=== PATIENT | female | born 1945 | race Caucasian/White ===

== ENCOUNTER → 2023-12-16 14:32 | Outpatient (REF) | payer MEDICARE, BC, SELFPAY | LOC: RCS 14:32 | PROVIDERS: ATTENDING PHYSICIAN Surgery; FAMILY PHYSICIAN Family Medicine; REFERRING PHYSICIAN Internal Medicine Cardiovascular Disease | DX: I34.0 Nonrheumatic mitral (valve) insufficiency (principal) | CPT/HCPCS: 93306 ==

== ENCOUNTER → 2024-04-16 06:59 | Outpatient (REF) | payer MEDICARE, BC, SELFPAY | LOC: RCS 06:59 | PROVIDERS: ATTENDING PHYSICIAN Internal Medicine Cardiovascular Disease; FAMILY PHYSICIAN Family Medicine | DX: R06.09 Other forms of dyspnea (principal) | CPT/HCPCS: 78452; 93017; A9500; J2785 ==

== ENCOUNTER 2024-06-13 07:41 | Day surgery (SDC) | payer MEDICARE, BC, SELFPAY ==
[2024-06-07 10:10] VITALS: BMI 32.9
[2024-06-13] VITALS (13 sets, daily range): BP systolic 86–194; BP diastolic 63–114
--- NOTE | 2024-06-13 11:19 | ITS.CL.CATH ---
[facility] - Catheterization
Cardiac Catheterization
Procedure Report:
CARDIAC CATHETERIZATION REPORT
Date of Procedure: 06/13/2024
Referring: Artemio Seymour D.O.
Indication: Persistent shortness of breath/dyspnea on exertion, lower extremity edema, status post prior mitral valve repair.
PROCEDURE:
1. Right heart catheterization.
2. Coronary angiography.
3. Left heart catheterization.
4. Mitral valve interrogation.
A total of 13 minutes of procedural/moderate sedation was utilized. An independent medical care administrator was present to assist with and help manage the patient's level of consciousness and physiologic status.
ACCESS:
1. 5 [place] right radial artery using a modified Seldinger technique. The artery would not accommodate a 6 [place] sheath.
2. 6 [place] right antecubital vein using a previously placed IV. The vein tract laterally and was unsuitable for use.
3. 5 [place] right antecubital vein using a modified Seldinger technique under ultrasound guidance. Ultrasound image obtained.
CATHETERS:
1. 5 [place] balloon wedge.
2. 5 [place] JR4.
3. 5 [place] JL 3.5.
HEMODYNAMIC DATA
Weight (kg): 83.9
AO (s/d/x, mmHg): 164/70/110
LV (s/x, mmHg): 166/15
PCWP (a/v/x, mmHg): 21/26/16
PA (s/d/x, mmHg): 45/20/28
RV (s/x, mmHg): 45/10
RA (a/v/x, mmHg): 14/12/10
SVC SvO2 (%): 70.3
IVC SvO2 (%): Not obtained.
RA SvO2 (%): Not obtained.
RV SvO2 (%): Not obtained.
PA SvO2 (%): 73.6
SaO2 (%): 96.0
Hbg (g/dL): 12.5
FELIX
CO (L/min): 4.59
CI (L/min/m2): 2.45
Thermodilution
CO (L/min): Not performed.
CI (L/min/m2): Not performed.
TPG (mmHg): 12
PVR (Armijo Units): 2.61
SVR (dynes*seconds*cm^-5): 1743
AVO2 Diff (Volume %): 3.81
AV gradient (x, mmHg): None.
AV area (cm2): Normal.
MV gradient (x, mmHg): 5.12
MV area (cm2): 2.13
LEFT VENTRICULOGRAPHY: Not performed. Partial ring mitral valve annuloplasty is plainly visible.
AORTOGRAPHY: Not performed.
CORONARY ANGIOGRAPHY
Dominance: Left.
Left Main: Large size, trifurcating vessel. There is no coronary artery disease.
LAD: Normal size vessel giving rise to 1 significant diagonal. There is no coronary artery disease.
Ramus: Medium size vessel supplying a significant portion of the lateral wall. There is no coronary artery disease. There are to 180 degree turns in the mid vessel.
Circumflex: Large size, dominant vessel giving rise to 2 obtuse marginals before terminating as an LPDA. There is no coronary artery disease.
RCA: Small size, nondominant vessel. There is no coronary artery disease.
INTERVENTIONS
None
Closure Device: Vascular band for the right radial artery, manual pressure for the right antecubital vein.
Radiation dose (mGy): 213.35
DAP (cm2.Gy): 15.5080
Fluoroscopy time (minutes): 3.8
CONCLUSIONS:
1. Left dominant circulation with no coronary artery disease.
2. Very mildly elevated filling pressures (LVEDP = 15 mmHg, PCWP = 16 mmHg at 83.9 kg).
3. Status post mitral valve repair with partial ring annuloplasty, resulting in mild mitral valve stenosis (mean gradient 5.12 mmHg, mitral valve area 2.13 cm�).
4. No obvious cardiac source for the patient's lower extremity edema and dyspnea on exertion.
RECOMMENDATIONS:
1. Expectant management after cardiac catheterization via right radial/antecubital approach.
2. Limited weight bearing on the right wrist for one week.
3. Continue supportive therapy.
4. Focus on conditioning for dyspnea on exertion.
5. Lower extremity edema is likely due to venous insufficiency. Recommend compression stockings and keeping her feet elevated when seated.
6. Stable for outpatient follow-up.
Copy to: Kimberly Prater M.D., Artemio Seymour, D.O.
Artemoi Seymour DO, FACC, FACP
[2024-06-13] MEDS: NSS 1000 IV (11:45)
== END 2024-06-13 14:15 | disposition home or self-care (01) ==
LOC: CATH 07:41
PROVIDERS: ATTENDING PHYSICIAN Internal Medicine Cardiovascular Disease; FAMILY PHYSICIAN Family Medicine
DX: I11.0 Hypertensive heart disease with heart failure (principal); R60.0 Localized edema; G47.33 Obstructive sleep apnea (adult) (pediatric); I50.32 Chronic diastolic (congestive) heart failure; M86.9 Osteomyelitis, unspecified; I05.0 Rheumatic mitral stenosis; E03.9 Hypothyroidism, unspecified; E78.5 Hyperlipidemia, unspecified; E66.9 Obesity, unspecified; Z68.32 Body mass index [BMI] 32.0-32.9, adult; Z90.710 Acquired absence of both cervix and uterus; Z85.42 Personal history of malignant neoplasm of other parts of uterus; Z85.3 Personal history of malignant neoplasm of breast; Z90.12 Acquired absence of left breast and nipple; Z91.041 Radiographic dye allergy status; Z88.8 Allergy status to other drugs, medicaments and biological substances; Z88.1 Allergy status to other antibiotic agents; Z88.2 Allergy status to sulfonamides; R06.09 Other forms of dyspnea; Z79.82 Long term (current) use of aspirin; Z79.899 Other long term (current) drug therapy; R94.31 Abnormal electrocardiogram [ECG] [EKG]
CPT/HCPCS: 99152; 76937; 93460; C1894